=== PATIENT | female | born 2000 | race Two or more races ===

== ENCOUNTER 2022-05-02 13:51 | Emergency (ER) | payer OTHER ==
[2022-05-02 14:12] VITALS: BP 131/83; PULSE 81; RESP 20; TEMP 98.2; BMI 32.4
[2022-05-02] MEDS ORDERED: ACETAMINOPHEN 325 MG TABLET (FP) PO ONE (15:58)
[2022-05-02 16:05] LABS: URINE APPEARANCE CLEAR; URINE BILIRUBIN NEGATIVE (NEGATIVE); URINE COLOR YELLOW; URINE GLUCOSE (UA) NEGATIVE (NEGATIVE); URINE KETONE TRACE (NEGATIVE); URINE LEUK ESTERASE NEGATIVE (NEGATIVE); URINE NITRITE NEGATIVE (NEGATIVE); URINE PROTEIN NEGATIVE (NEGATIVE); URINE UROBILINOGEN 0.2 mg/dL (0.2-1.0)
[2022-05-02] MEDS ORDERED: ACETAMINOPHEN 325 MG TABLET (FP) ONE (16:18)
[2022-05-02 16:27] LABS: HCG,QUALITATIVE URINE Negative
[2022-05-02] MEDS ORDERED: KETOROLAC TROMETHAMINE 30 MG/1 ML VIAL IM ONE (18:24)
[2022-05-02] MEDS ORDERED: KETOROLAC TROMETHAMINE 30 MG/1 ML VIAL ONE (18:27)
== END 2022-05-02 19:08 | disposition home or self-care (01) ==
LOC: JER 13:51
PROC: 3E023GC Introduction of Other Therapeutic Substance into Muscle, Percutaneous Approach (ICD-10-PCS; principal; 2022-05-02)
DX: N83.202 Unspecified ovarian cyst, left side (principal)
CPT/HCPCS: 76856-TC; 81003; 84703; 99284-25